=== PATIENT | male | born 2000 | race Caucasian/White ===

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

== ENCOUNTER 2021-06-09 18:00 | Emergency (ER) | payer MEDICAID ==
[2021-06-09 18:07] VITALS: BP 115/72; PULSE 81; O2SAT 98
[2021-06-09] MEDS ORDERED: Carafate 1 GM PO ONE ×2 (18:29→18:30)
[2021-06-09] MEDS ORDERED: Protonix 40MG Tablet PO ONE (18:29)
[2021-06-09] MEDS ORDERED: Protonix 40MG Tablet ONE (18:29)
--- NOTE | 2021-06-09 18:41 | ERPHSYRPT ---
- History of Present Illness Time Seen by Provider: 06/09/21 18:03 Source: patient, family Exam Limitations: no limitations Patient Subjective Stated Complaint: Patient states Jovon night at work he had breadsticks and chicken strips and "feels like it is stuck in his throat". States it hurts to swallow, deep breath, and eat. Triage Nursing Assessment: Patient to ED with complaints of discomfort in throat. Patient not in distress at this time. VS WNL. Patient pink warm and dry, interacting with nurse. No visual of object in throat. Physician History: 20 years old presented in the ER with complaint of difficulty swallowing for 2 days. Patient report he was having bread steak and chicken strips 2 days ago which he swallowed but seems like it stuck in the lower chest and having some discomfort every time he eats or drink. Patient reports he is not able to eat or drink anything initially but on further questioning does admit drinking 2X32 ounce bottles of Mountain Dew and pizza yesterday with no drooling or vomiting. But has burning sensation. No difficulty breathing cough or etc. Does not have any history of acid reflux. Allergies/Adverse Reactions: No Known Drug Allergies Allergy (Verified 06/09/21 18:13) Hx Tetanus, Diphtheria Vaccination/Date Given: Yes Hx Influenza Vaccination/Date Given: No Hx Pneumococcal Vaccination/Date Given: No Immunizations Up to Date: Yes Travel Risk - International Travel Have you traveled outside of the country in past 3 weeks: No - Coronavirus Screening Are you exhibiting any of the following symptoms?: No Close contact with a COVID-19 positive Pt in past 14-21 Days: No - Vaccine Status Have you recieved a Covid-19 vaccination: No - Review of Systems Constitutional: No Symptoms Eyes: No Symptoms Ears, Nose, & Throat: No Symptoms Respiratory: No Symptoms Cardiac: Chest Pain Abdominal/Gastrointestinal: No Symptoms Genitourinary Symptoms: No Symptoms Musculoskeletal: No Symptoms Skin: No Symptoms Psychological: Anxiety Endocrine: No Symptoms Hematologic/Lymphatic: No Symptoms - Past Medical History Pertinent Past Medical History: No Neurological History: No Pertinent History Cardiac History: No Pertinent History Respiratory History: No Pertinent History Endocrine Medical History: No Pertinent History Musculoskeletal History: No Pertinent History GI Medical History: No Pertinent History History: No Pertinent History Psycho-Social History: No Pertinent History Male Reproductive Disorders: No Pertinent History - Past Surgical History Past Surgical History: Yes Neuro Surgical History: No Pertinent History Cardiac: No Pertinent History Respiratory: No Pertinent History Gastrointestinal: No Pertinent History Genitourinary: No Pertinent History Musculoskeletal: Orthopedic Surgery Male Surgical History: No Pertinent History Other Surgical History: Right foot orthopedic surgery - Social History Smoking Status: Former smoker Exposure to second hand smoke: Yes Drug Use: none Patient Lives Alone: No - Nursing Vital Signs Nursing Vital Signs: Initial Vital Signs Temperature 98.2 F 06/09/21 18:04 Pulse Rate 81 06/09/21 18:04 Respiratory Rate 18 06/09/21 18:04 Blood Pressure 115/72 06/09/21 18:04 O2 Sat by Pulse Oximetry 98 06/09/21 18:04 Pain Scale Pain Intensity 7 - Physical Exam General Appearance: no apparent distress, alert, anxiety Eye Exam: PERRL/EOMI, eyes nml inspection Ears, Nose, Throat Exam: normal ENT inspection, TMs normal, pharynx normal, moist mucous membranes Neck Exam: normal inspection, non-tender, supple, carotid bruit Respiratory Exam: normal breath sounds, lungs clear Cardiovascular Exam: regular rate/rhythm, normal heart sounds Gastrointestinal/Abdomen Exam: soft, normal bowel sounds, No tenderness Back Exam: normal inspection, normal range of motion Extremity Exam: normal inspection, normal range of motion Neurologic Exam: alert, oriented x 3, cooperative Skin Exam: normal color SpO2 Interpretation: normal SpO2: 98 O2 Delivery: Room Air Ordered Tests: Medication Summary Discontinued Medications Generic Name Dose Route Start Last Admin Trade Name Freq PRN Reason Stop Dose Admin Pantoprazole Sodium 40 mg 06/09/21 18:29 06/09/21 18:33 Protonix 40mg Tablet PO 06/09/21 18:30 40 mg STAT ONE Administration Pantoprazole Sodium Confirm 06/09/21 18:29 Protonix 40mg Tablet Administered 06/09/21 18:30 Dose 40 mg .ROUTE .STK-MED ONE Sucralfate 1 g 06/09/21 18:29 06/09/21 18:33 Carafate 1 Gm PO 06/09/21 18:30 1 g STAT ONE Administration Sucralfate Confirm 06/09/21 18:30 Carafate 1 Gm Administered 06/09/21 18:31 Dose 1 g PO .STK-MED ONE - Progress Progress: unchanged Progress Note: 06/09/21 18:38 Patient has acid reflux with esophagitis. No sign symptoms suggesting food bolus. Does need outpatient follow-up with GI for scope. We will start him on Carafate and Protonix. Discussed signs symptoms of worsening needing return to ER which he seems understanding. Counseled pt/family regarding: diagnosis, need for follow-up - Departure Departure Disposition: Home Clinical Impression: GERD with esophagitis Qualifiers: Esophagitis bleeding: without hemorrhage Qualified Code(s): K21.00 - Gastro- esophageal reflux disease with esophagitis, without bleeding Condition: Stable Critical Care Time: No Referrals: [facility] [Primary Care Provider] - (1-2 days for reevaluation) JOHANNA PRUITT MD [NON-STAFF PHY W/O PRIVILEGES] - (Call tomorrow for appointment) Instructions: Acid Reflux and GERD in Adults (DC) Additional Instructions: Do not take ibuprofen/Aleve or any other NSAIDs. Do not smoke. Do not take solid food or chew it properly. Follow-up with GI for further evaluation and may need endoscopy for further evaluation. Prescriptions: Sucralfate 1 gm [Carafate 1 GM] 1 g PO ACHS #60 tablet PANTOPRAZOLE 40 mg Tablet [Protonix 40MG Tablet] 40 mg PO QAM #30 tab
== END 2021-06-09 18:50 | disposition home or self-care (01) ==
LOC: ED 18:00
DX: K21.00 Gastro-esophageal reflux disease with esophagitis, without bleeding (principal)
CPT/HCPCS: 99283; A9270-GY